=== PATIENT | female | born 1995 | race Caucasian/White ===

== ENCOUNTER 2017-07-04 11:45 | Emergency (ER) | payer SELFPAY ==
[~2017-07-04] VITALS: Ht 170.2 cm; Wt 72.7 kg
[2017-07-04] MEDS ORDERED: AZIT250T9 PO (11:59)
[2017-07-04] MEDS ORDERED: BENZ-51 PO (11:59)
[2017-07-04 12:54] VITALS: BP 110/76
== END 2017-07-04 13:00 | disposition home or self-care (01) ==
LOC: EMS 11:48
DX: J40 Bronchitis, not specified as acute or chronic (principal); Z88.8 Allergy status to other drugs, medicaments and biological substances
CPT/HCPCS: 99283